=== PATIENT | male | born 1980 | race Caucasian/White ===

== ENCOUNTER 2024-06-02 09:27 | Emergency (ER) | payer OTHER ==
[~2024-06-02] VITALS: Ht 170.2 cm; Wt 90.7 kg
[2024-06-02 09:49] VITALS: BP 125/69; PULSE 76; RESP 18; TEMP 97.9; O2SAT 96
[2024-06-02] MEDS: ONDANSETRON 4 MG ODT PO ONE (11:24)
[2024-06-02] MEDS: diphenhydrAMINE 50 MG/ML VIAL IM ONE (11:25)
[2024-06-02] MEDS: KETOROLAC 30 MG/ML VIAL IM ONE (11:26)
[2024-06-02 12:45] VITALS: BP 122/62; PULSE 76; RESP 18; TEMP 97.9; O2SAT 96
== END 2024-06-02 12:45 | disposition home or self-care (01) ==
LOC: MED 09:27
DX: F11.23 Opioid dependence with withdrawal (principal)
CPT/HCPCS: 96372; 99284; J1200; J1885; Q0162

== ENCOUNTER 2024-07-05 04:40 | Inpatient (IN) | payer BC, OTHER ==
[~2024-07-05] VITALS: Ht 170.2 cm; Wt 89.8 kg
[2024-07-05 04:47] VITALS: BP 113/77; PULSE 104; RESP 20; TEMP 97; O2SAT 100
[2024-07-05] MEDS: LORazepam 1 MG TAB PO ONE (05:45)
[2024-07-05 06:06] LABS: BASOPHILS # (AUTO) 0.1 K/uL (0.00-0.22); BASOPHILS % (AUTO) 1.3 % (0.0-2.0); EOSINOPHILS % (AUTO) 0.9 % (0.0-4.0); HEMATOCRIT 42.8 % (36-52); HEMOGLOBIN 14.7 g/dL (12.0-18.0); LYMPHOCYTES % (AUTO) 19.3 % (20.5-51.1); MEAN CORPUSCULAR HEMOGLOBIN 31 pg (27-31); MEAN CORPUSCULAR HGB CONC 34 g/dL (33-37); MEAN CORPUSCULAR VOLUME 89.7 fL (80-94); MONOCYTES # (AUTO) 0.5 K/uL (0.8-1.0); MONOCYTES % (AUTO) 9.6 % (1.7-9.3); NEUTROPHILS # (AUTO) 3.6 K/uL (1.8-7.7); NEUTROPHILS % (AUTO) 68.9 % (42.2-75.2); PLATELET COUNT (AUTO) 257 K/uL (140-450); RED BLOOD CELL COUNT(AUTO) 4.77 MIL/uL (4.20-6.10); RED CELL DISTRIBUTION WIDTH 13.5 % (11.6-13.7); WHITE BLOOD COUNT (AUTO) 5.2 K/uL (4.8-10.8)
[2024-07-05 06:18] LABS: ANION GAP 10.5 (8-16); CALCIUM 8.6 mg/dL (8.5-10.1); CARBON DIOXIDE 29.1 mmol/L (21-32); CHLORIDE 101 mmol/L (98-107); GFR ARICAN-AMERICAN 104 mL/min (>90); GFR NON ARICAN-AMERICAN 86 mL/min (>90); GLUCOSE 116 mg/dL (74-106); POTASSIUM 3.6 mmol/L (3.5-5.1); SODIUM SERUM 137 mmol/L (136-145); UREA NITROGEN, BLOOD 17 mg/dL (7-18)
[2024-07-05 06:31] LABS: ALANINE AMINOTRANSFERASE 36 U/L (12-78); ALBUMIN 3.5 g/dL (3.4-5.0); ALCOHOL, BLOOD < 3 mg/dL (<10); ALKALINE PHOSPHATASE 62 U/L (50-136); ASPARTATE AMINOTRANSFERASE 19 U/L (15-37); TOTAL PROTEIN, SERUM 6.6 g/dL (6.4-8.2)
[2024-07-05 06:33] LABS: ACETAMINOPHEN < 0.5 ug/ml (10-30); SALICYLATE < 2.8 mg/dL (2.8-20.0)
[2024-07-05] MEDS: NACL 0.9% 1,000 ML IV ONE (07:12)
[2024-07-05] MEDS ORDERED: ACETAMINOPHEN 325 MG TAB PO PRN (08:55)
[2024-07-05] MEDS ORDERED: ONDANSETRON 4 MG/2 ML VIAL IVP PRN (08:55)
[2024-07-05] MEDS: NACL 0.9% 1,000 ML IV SCH (09:05)
[2024-07-05] MEDS ORDERED: ARIP5TAB8 PO (09:41)
[2024-07-05] MEDS ORDERED: TRAZ-343 PO (09:43)
[2024-07-05] MEDS ORDERED: GABA300C PO (09:43)
[2024-07-05 09:48] LABS: AMPHETAMINE, URINE POSITIVE ng/ml (NEG <=1000); BARBITURATE, URINE NEGATIVE ng/ml (NEG <=200); BENZODIAZEPINE, URINE POSITIVE ng/mL (NEG <=200); CANNABINOID, URINE NEGATIVE ng/mL (NEG <=50); COCAINE, URINE NEGATIVE ng/mL (NEG <=300); OPIATE, URINE NEGATIVE ng/mL (NEG <=2000); PHENCYCLIDINE SCREEN,URINE NEGATIVE ng/mL (NEG <=25)
[2024-07-05 11:55] VITALS: PULSE 71; RESP 20; O2SAT 93
[2024-07-05 16:00] VITALS: BP 111/63; PULSE 81; PULSE 95; RESP 18; TEMP 97.2; O2SAT 95
[2024-07-05] MEDS ORDERED: ZOLPIDEM 5 MG TAB PO PRN (19:40)
== END 2024-07-05 19:58 | disposition left against medical advice (07) | DRG 313 ==
LOC: MED 04:40 → MTU 08:55
PROVIDERS: ADMIT Student in an Organized Health Care Education/Training Program; ATTEND Student in an Organized Health Care Education/Training Program
DX: R07.89 Other chest pain (principal); J45.909 Unspecified asthma, uncomplicated; F32.A Depression, unspecified; F41.9 Anxiety disorder, unspecified; G47.00 Insomnia, unspecified; Z53.29 Procedure and treatment not carried out because of patient's decision for other reasons
CPT/HCPCS: 36415; 71045; 80053; 80305; 84484; 85025; 87081; 96360; 99285; G0480; G0482; Q0092